=== PATIENT | male | born 1975 | race Two or more races ===

== ENCOUNTER 2022-11-08 15:54 | Emergency (ER) | payer OTHER ==
[~2022-11-08] VITALS: Ht 180.3 cm; Wt 92.1 kg
[2022-11-08] MEDS ORDERED: HUMALOG100 UNIT/2 SQ (16:16)
[2022-11-08] MEDS ORDERED: LANTUS SOL100 UNIT/1 SQ (16:16)
[2022-11-08] MEDS ORDERED: NEURONTIN300 MG PO (16:17)
== END 2022-11-08 18:06 | disposition home or self-care (01) ==
LOC: ER 15:54
DX: M62.838 Other muscle spasm (principal); M62.830 Muscle spasm of back; E11.9 Type 2 diabetes mellitus without complications; Z79.4 Long term (current) use of insulin